=== PATIENT | female | born 1940 | race Caucasian/White ===

== ENCOUNTER 2017-03-29 19:55 | Inpatient (IN) | payer OTHER ==
[~2017-03-29] VITALS: Ht 165.1 cm; Wt 50.4 kg
[~2017-03-29 19:55] MED LIST: AEC81 PO; ALBU0.63 IH; ALBU6.7H IH; AMOX-429 PO; BUDE10.2 IH; DIGO125T87 PO; DILT180C3 PO; PRED20TA3 PO; TIOT18CA3 IH
[2017-03-29] MEDS ORDERED: SODIUM CHLORIDE 0.9% 1000ML 2,000 ML IV ONE (20:11)
[2017-03-29 20:51] LABS: BASOPHILS % (AUTO) 0.1 % (0.0-5.0); LYMPHOCYTES % (AUTO) 1.5 % (21.0-51.0); MEAN CORPUSCULAR HEMOGLOBIN 30.3 pg (27.0-33.0); MEAN CORPUSCULAR HGB CONC 33.3 g/dL (32.0-36.0); MEAN CORPUSCULAR VOLUME 91.2 fL (79-99); MONOCYTES % (AUTO) 6.6 % (3.0-13.0); NEUTROPHILS % (AUTO) 91.8 % (40.0-77.0); PLATELET COUNT (AUTO) 336 K/uL (130-400); RED BLOOD CELL COUNT(AUTO) 5.15 MIL/uL (4.00-5.50); RED CELL DISTRIBUTION WIDTH 13.3 % (11.0-15.5); WHITE BLOOD COUNT (AUTO) 17.2 K/uL (4.8-10.8)
[2017-03-29 21:03] LABS: CARBON DIOXIDE 27 mmol/L (21-32); CHLORIDE 94 mmol/L (101-111); CREATININE 0.6 mg/dL (0.5-1.5); GLOMERULAR FILTR. RATE CALC 102 mL/min (>60); GLUCOSE,RANDOM 91 mg/dL (70-105); POTASSIUM 3.2 mmol/L (3.5-5.1); SODIUM SERUM 132 mmol/L (136-145); UREA NITROGEN, BLOOD 8 mg/dL (7-18)
[2017-03-29 21:05] LABS: APPEARANCE,URINE Clear (CLEAR); BILIRUBIN,URINE Negative (NEGATIVE); COLOR,URINE Yellow (YELLOW); GLUCOSE, URINE (UA) Negative (NEGATIVE); KETONES,URINE >=80 mg/dL (NEGATIVE); LEUKOCYTE ESTERASE ,URINE Negative (NEGATIVE); NITRATE,URINE Negative (NEGATIVE); OCCULT BLOOD,URINE Trace (NEGATIVE); PROTEIN,URINE Negative (NEGATIVE); UROBILINOGEN,URINE 0.2 mg/dL (0.2-1.0)
[2017-03-29 21:15] LABS: BACTERIA,URINE Rare /HPF (None Seen); MUCUS,URINE Few LPF (None Seen); RBC,URINE None Seen /HPF (0-1); SQUAMOUS EPITHELIAL CELL,UR Few /LPF (0-2); WBC,URINE None Seen /HPF (0-1)
[2017-03-29] MEDS ORDERED: ACETAMINOPHEN EXTRA STRENGTH 500 MG TABLET ONE (21:15)
[2017-03-29] MEDS ORDERED: LEVOFLOXACIN 750 MG/D5W 150 ML 150 ML ONE (21:15)
[2017-03-29 21:18] LABS: ALANINE AMINOTRANSFERASE 20 U/L (12-78); ALBUMIN 3.3 g/dL (3.5-5.0); ASPARTATE AMINOTRANSFERASE 20 U/L (10-37); BILIRUBIN,TOTAL 0.5 mg/dL (0.2-1.0); CREATINE KINASE MB < 0.5 ng/mL (0.5-3.6); CREATINE KINASE, TOTAL 48 U/L (21-232); MYOGLOBIN 71 ng/mL (10-92); TOTAL PROTEIN, SERUM 6.6 g/dL (6.0-8.3); TROPONIN I < 0.04 ng/mL (0.00-0.06)
[2017-03-29 21:24] LABS: INR 1.05 (0.85-1.15); PARTIAL THROMBOPLASTIN TIME 28.1 SEC (26.3-35.5)
[2017-03-29 21:26] LABS: ABG BASE EXCESS -7.4 mmol/L (-2.0-3.0); ABG HCO3 21.2 mmol/L (21.0-28.0); ABG OXYGEN SATURATION 81.9 % (95.0-99.0); ABG PCO2 56 mmHg (32-45)
[2017-03-29] MEDS ORDERED: OSELTAMIVIR PHOSPHATE 75 MG CAP ONE (22:15)
[2017-03-29] MEDS ORDERED: SODIUM CHLORIDE 0.9% 1000ML 1,000 ML IV ONE (23:55)
[2017-03-30] VITALS (17 sets, daily range): BP systolic 99–155; BP diastolic 45–93
[2017-03-30] MEDS: SODIUM CHLORIDE 0.9% 1000ML 1,000 ML IV SCH ×2 (00:02→08:47)
[2017-03-30] MEDS ORDERED: POTASSIUM CHLORIDE 10% ELIXIR 20 MEQ/15 ML UDCUP PO PRN (00:15)
[2017-03-30] MEDS ORDERED: POTASSIUM CHLORIDE 20MEQ/100ML 100 ML IV PRN (00:15)
[2017-03-30] MEDS ORDERED: LIDOCAINE HCL-MPF 1% 2ML VIAL IVP PRN (00:15)
[2017-03-30] MEDS ORDERED: ONDANSETRON HCL 4 MG/2 ML VIAL IV PRN (00:15)
[2017-03-30] MEDS ORDERED: GUAIFENESIN-DM 200/20 MG 10 ML PO PRN (00:15)
[2017-03-30] MEDS ORDERED: POTASSIUM CHLORIDE 20 MEQ ERTAB PO PRN (00:15)
[2017-03-30] MEDS ORDERED: ACETAMINOPHEN 325 MG TAB PO PRN ×2 (00:15)
[2017-03-30] MEDS ORDERED: CEFTRIAXONE 1GM/D5W 50ML 50 ML IV SCH (00:30)
[2017-03-30] MEDS: AZITHROMYCIN 500MG+NS 250ML 250 ML IV SCH (01:00)
[2017-03-30] MEDS ORDERED: METHYLPREDNISOLONE SOD SUCC 125MG/2ML VIAL IVP SCH ×2 (01:00→09:00)
[2017-03-30] MEDS ORDERED: METHYLPREDNISOLONE SOD SUCC 125MG/2ML VIAL ONE (01:48)
[2017-03-30] MEDS ORDERED: CEFTRIAXONE SODIUM 1 GM ONE (01:48)
[2017-03-30] MEDS ORDERED: AZITHROMYCIN 500MG+NS 250ML 250 ML IV ONE (01:48)
[2017-03-30 06:20] LABS: HEMATOCRIT 47.9 % (36-48); MEAN CORPUSCULAR HEMOGLOBIN 30.1 pg (27.0-33.0); MEAN CORPUSCULAR HGB CONC 32.8 g/dL (32.0-36.0); MEAN CORPUSCULAR VOLUME 91.8 fL (79-99); PLATELET COUNT (AUTO) 268 K/uL (130-400); RED BLOOD CELL COUNT(AUTO) 5.22 MIL/uL (4.00-5.50); RED CELL DISTRIBUTION WIDTH 13.7 % (11.0-15.5)
[2017-03-30 06:33] LABS: CREATININE 0.8 mg/dL (0.5-1.5); POTASSIUM 3.5 mmol/L (3.5-5.1)
[2017-03-30] MEDS: FAMOTIDINE 20MG TAB 20 MG TAB PO SCH ×2 (08:25→21:22)
[2017-03-30] MEDS: OSELTAMIVIR PHOSPHATE 75 MG CAP PO SCH ×2 (08:25→21:22)
[2017-03-30] MEDS: ENOXAPARIN SODIUM 40 MG/0.4 ML SYRINGE SQ SCH (08:25)
[2017-03-30] MEDS: METHYLPREDNISOLONE SOD SUCC 125MG/2ML VIAL IV SCH ×3 (08:25→16:16)
[2017-03-30] MEDS: IPRATROPIUM/ALBUTEROL SULFATE 3 ML SOLUTION IH SCH ×4 (08:43→23:34)
[2017-03-30] MEDS ORDERED: ENOXAPARIN SODIUM 40 MG/0.4 ML SYRINGE SQ SCH (09:00)
[2017-03-30 09:11] LABS: ABG BASE EXCESS -7.7 mmol/L (-2.0-3.0); ABG HCO3 20.4 mmol/L (21.0-28.0); ABG OXYGEN SATURATION 98.7 % (95.0-99.0); ABG PCO2 52 mmHg (32-45)
[2017-03-30] MEDS: DILTIAZEM HCL 60 MG TABLET PO SCH ×2 (12:11→18:00)
[2017-03-30] MEDS ORDERED: TERB250T51 PO (17:28)
[2017-03-30] MEDS ORDERED: HYDR25TA PO (17:28)
[2017-03-30] MEDS: CEFTRIAXONE SODIUM 1 GM IVP SCH (21:23)
[2017-03-31] VITALS (17 sets, daily range): BP systolic 92–128; BP diastolic 46–80
[2017-03-31] MEDS: METHYLPREDNISOLONE SOD SUCC 125MG/2ML VIAL IV SCH ×4 (00:21→23:23)
[2017-03-31] MEDS: AZITHROMYCIN 500MG+NS 250ML 250 ML IV SCH ×2 (00:21→23:44)
[2017-03-31 04:00] LABS: HEMATOCRIT 42.5 % (36-48); MEAN CORPUSCULAR HEMOGLOBIN 30.6 pg (27.0-33.0); MEAN CORPUSCULAR HGB CONC 33.3 g/dL (32.0-36.0); MEAN CORPUSCULAR VOLUME 92.1 fL (79-99); PLATELET COUNT (AUTO) 308 K/uL (130-400); RED BLOOD CELL COUNT(AUTO) 4.62 MIL/uL (4.00-5.50); RED CELL DISTRIBUTION WIDTH 13.8 % (11.0-15.5); WHITE BLOOD COUNT (AUTO) 19.4 K/uL (4.8-10.8)
[2017-03-31 04:16] LABS: CREATININE 1.5 mg/dL (0.5-1.5); POTASSIUM 3.5 mmol/L (3.5-5.1)
[2017-03-31] MEDS: DILTIAZEM HCL 60 MG TABLET PO SCH ×5 (06:17→23:23)
[2017-03-31] MEDS: IPRATROPIUM/ALBUTEROL SULFATE 3 ML SOLUTION IH SCH ×4 (06:39→23:39)
[2017-03-31] MEDS ORDERED: SODIUM CHLORIDE 0.9% 1000ML 1,000 ML IV SCH (07:06)
[2017-03-31 07:51] LABS: ABG BASE EXCESS -5.3 mmol/L (-2.0-3.0); ABG HCO3 21.8 mmol/L (21.0-28.0); ABG PCO2 48 mmHg (32-45)
[2017-03-31] MEDS: ASPIRIN 81 MG EC TAB PO SCH (08:36)
[2017-03-31] MEDS: OSELTAMIVIR PHOSPHATE 75 MG CAP PO SCH ×2 (08:36→20:24)
[2017-03-31] MEDS: FAMOTIDINE 20MG TAB 20 MG TAB PO SCH ×2 (08:37→20:24)
[2017-03-31] MEDS: DIGOXIN 125 MCG TABLET PO SCH (08:37)
[2017-03-31] MEDS: ENOXAPARIN SODIUM 40 MG/0.4 ML SYRINGE SQ SCH (08:39)
[2017-03-31] MEDS: **HM** TERBINAFINE 250MG PO SCH (08:39)
[2017-03-31] MEDS: ALBUTEROL SULFATE 0.083% 2.5 MG/3 ML INH IH SCH (18:00)
[2017-03-31] MEDS: IPRATROPIUM 0.5 MG/2.5 ML INH IH SCH (18:00)
[2017-03-31] MEDS: BUDESONIDE 0.5 MG/2 ML INH IH SCH (19:40)
[2017-03-31] MEDS ORDERED: WATER FOR INJECTION,STERILE 20 ML VIAL ONE (19:59)
[2017-03-31] MEDS: CEFTRIAXONE SODIUM 1 GM IVP SCH (20:23)
[2017-04-01 04:29] VITALS: BP 121/56
[2017-04-01] MEDS: DILTIAZEM HCL 60 MG TABLET PO SCH ×3 (05:04→16:32)
[2017-04-01] MEDS: IPRATROPIUM/ALBUTEROL SULFATE 3 ML SOLUTION IH SCH ×4 (06:00→23:55)
[2017-04-01] MEDS: IPRATROPIUM 0.5 MG/2.5 ML INH IH SCH ×3 (06:43→18:00)
[2017-04-01] MEDS: ALBUTEROL SULFATE 0.083% 2.5 MG/3 ML INH IH SCH ×3 (06:43→18:00)
[2017-04-01] MEDS: BUDESONIDE 0.5 MG/2 ML INH IH SCH ×2 (06:58→19:29)
[2017-04-01 07:40] VITALS: BP 128/69
[2017-04-01 07:40] LABS: CREATININE 1.1 mg/dL (0.5-1.5); POTASSIUM 4.1 mmol/L (3.5-5.1)
[2017-04-01] MEDS: FAMOTIDINE 20MG TAB 20 MG TAB PO SCH ×2 (07:44→21:43)
[2017-04-01] MEDS: OSELTAMIVIR PHOSPHATE 75 MG CAP PO SCH ×2 (07:44→21:43)
[2017-04-01] MEDS: ASPIRIN 81 MG EC TAB PO SCH (07:44)
[2017-04-01] MEDS: METHYLPREDNISOLONE SOD SUCC 125MG/2ML VIAL IV SCH (07:45)
[2017-04-01] MEDS: DIGOXIN 125 MCG TABLET PO SCH (07:45)
[2017-04-01] MEDS: ENOXAPARIN SODIUM 40 MG/0.4 ML SYRINGE SQ SCH (07:45)
[2017-04-01] MEDS: **HM** TERBINAFINE 250MG PO SCH (07:45)
[2017-04-01] MEDS ORDERED: ACETYLCYSTEINE 20% 200MG/ML 4ML VIAL ONE (10:59)
[2017-04-01 11:10] VITALS: BP 121/62
[2017-04-01] MEDS: ACETYLCYSTEINE 20% 200MG/ML 4ML VIAL IH SCH ×2 (11:24→19:02)
[2017-04-01 16:15] VITALS: BP 132/60
[2017-04-01] MEDS: METHYLPREDNISOLONE SOD SUCC 40MG/ML 1ML IVP SCH (16:32)
[2017-04-01 19:45] VITALS: BP 129/44
[2017-04-01] MEDS: CEFTRIAXONE SODIUM 1 GM IVP SCH (21:43)
[2017-04-01 23:47] VITALS: BP 118/52
[2017-04-02] MEDS: AZITHROMYCIN 500MG+NS 250ML 250 ML IV SCH (00:33)
[2017-04-02] MEDS: METHYLPREDNISOLONE SOD SUCC 40MG/ML 1ML IVP SCH ×3 (00:36→20:23)
[2017-04-02] MEDS: DILTIAZEM HCL 60 MG TABLET PO SCH ×3 (00:36→11:55)
[2017-04-02 03:55] VITALS: BP 132/68
[2017-04-02 04:43] LABS: HEMATOCRIT 39.2 % (36-48); MEAN CORPUSCULAR HEMOGLOBIN 30.5 pg (27.0-33.0); MEAN CORPUSCULAR HGB CONC 33.5 g/dL (32.0-36.0); PLATELET COUNT (AUTO) 271 K/uL (130-400); RED CELL DISTRIBUTION WIDTH 14.1 % (11.0-15.5); WHITE BLOOD COUNT (AUTO) 9.3 K/uL (4.8-10.8)
[2017-04-02 05:00] LABS: CREATININE 0.9 mg/dL (0.5-1.5); POTASSIUM 4.3 mmol/L (3.5-5.1)
[2017-04-02] MEDS: IPRATROPIUM/ALBUTEROL SULFATE 3 ML SOLUTION IH SCH ×2 (06:36→11:43)
[2017-04-02] MEDS: ACETYLCYSTEINE 20% 200MG/ML 4ML VIAL IH SCH (06:37)
[2017-04-02] MEDS: BUDESONIDE 0.5 MG/2 ML INH IH SCH ×2 (07:16→19:05)
[2017-04-02 07:38] VITALS: BP 136/65
[2017-04-02] MEDS: FAMOTIDINE 20MG TAB 20 MG TAB PO SCH ×2 (09:00→20:24)
[2017-04-02] MEDS: ASPIRIN 81 MG EC TAB PO SCH (09:00)
[2017-04-02] MEDS: ENOXAPARIN SODIUM 40 MG/0.4 ML SYRINGE SQ SCH (09:00)
[2017-04-02] MEDS: DIGOXIN 125 MCG TABLET PO SCH (09:00)
[2017-04-02] MEDS: **HM** TERBINAFINE 250MG PO SCH (09:00)
[2017-04-02 11:13] VITALS: BP 136/64
[2017-04-02] MEDS: OSELTAMIVIR PHOSPHATE 75 MG CAP PO SCH ×2 (12:01→20:24)
[2017-04-02 16:15] VITALS: BP 121/72
[2017-04-02] MEDS: DILTIAZEM HCL 180 MG CAP.SR.24H PO SCH (18:21)
[2017-04-02] MEDS: IPRATROPIUM 0.5 MG/2.5 ML INH IH SCH ×2 (18:27)
[2017-04-02 19:51] VITALS: BP 130/69
[2017-04-02] MEDS ORDERED: WATER FOR INJECTION,STERILE 5 ML VIAL ONE (20:19)
[2017-04-02] MEDS: CEFTRIAXONE SODIUM 1 GM IVP SCH (20:22)
[2017-04-02 23:35] VITALS: BP 140/73
[2017-04-03] MEDS: AZITHROMYCIN 500MG+NS 250ML 250 ML IV SCH (00:17)
[2017-04-03] MEDS: IPRATROPIUM 0.5 MG/2.5 ML INH IH SCH ×5 (01:27→23:58)
[2017-04-03 04:09] VITALS: BP 132/68
[2017-04-03] MEDS: BUDESONIDE 0.5 MG/2 ML INH IH SCH ×2 (06:45→19:35)
[2017-04-03 07:28] VITALS: BP 141/72
[2017-04-03] MEDS: FAMOTIDINE 20MG TAB 20 MG TAB PO SCH ×2 (09:00→21:41)
[2017-04-03] MEDS ORDERED: DILTIAZEM HCL 180 MG CAP.SR.24H PO SCH (09:00)
[2017-04-03] MEDS: ASPIRIN 81 MG EC TAB PO SCH (09:00)
[2017-04-03] MEDS: **HM** TERBINAFINE 250MG PO SCH (09:00)
[2017-04-03] MEDS: OSELTAMIVIR PHOSPHATE 75 MG CAP PO SCH (09:01)
[2017-04-03] MEDS: DILTIAZEM HCL 180 MG CAP.SR.24H PO SCH (09:01)
[2017-04-03] MEDS: DIGOXIN 125 MCG TABLET PO SCH (09:01)
[2017-04-03] MEDS: METHYLPREDNISOLONE SOD SUCC 40MG/ML 1ML IVP SCH ×2 (09:02→21:39)
[2017-04-03] MEDS: ENOXAPARIN SODIUM 40 MG/0.4 ML SYRINGE SQ SCH (09:03)
[2017-04-03 11:24] VITALS: BP 151/74
[2017-04-03 16:14] VITALS: BP 152/72
[2017-04-03 19:39] VITALS: BP 147/90
[2017-04-03] MEDS ORDERED: WATER FOR INJECTION,STERILE 20 ML VIAL ONE (21:28)
[2017-04-03] MEDS: CEFTRIAXONE SODIUM 1 GM IVP SCH (21:40)
[2017-04-03 23:17] VITALS: BP 155/76
[2017-04-04] MEDS: AZITHROMYCIN 500MG+NS 250ML 250 ML IV SCH (00:09)
[2017-04-04 03:18] LABS: CREATININE 0.7 mg/dL (0.5-1.5); POTASSIUM 4.6 mmol/L (3.5-5.1)
[2017-04-04 03:19] LABS: HEMATOCRIT 40.3 % (36-48); MEAN CORPUSCULAR HEMOGLOBIN 31.1 pg (27.0-33.0); MEAN CORPUSCULAR VOLUME 91.4 fL (79-99); PLATELET COUNT (AUTO) 249 K/uL (130-400); RED BLOOD CELL COUNT(AUTO) 4.41 MIL/uL (4.00-5.50); RED CELL DISTRIBUTION WIDTH 13.8 % (11.0-15.5); WHITE BLOOD COUNT (AUTO) 8.8 K/uL (4.8-10.8)
[2017-04-04 03:48] VITALS: BP 153/76
[2017-04-04] MEDS: IPRATROPIUM 0.5 MG/2.5 ML INH IH SCH ×5 (06:00→12:00)
[2017-04-04] MEDS: BUDESONIDE 0.5 MG/2 ML INH IH SCH (06:08)
[2017-04-04 07:31] VITALS: BP 148/76
[2017-04-04] MEDS: FAMOTIDINE 20MG TAB 20 MG TAB PO SCH (08:19)
[2017-04-04] MEDS: METHYLPREDNISOLONE SOD SUCC 40MG/ML 1ML IVP SCH (08:19)
[2017-04-04] MEDS: DIGOXIN 125 MCG TABLET PO SCH (08:20)
[2017-04-04] MEDS: ASPIRIN 81 MG EC TAB PO SCH (08:20)
[2017-04-04] MEDS: DILTIAZEM HCL 180 MG CAP.SR.24H PO SCH (08:20)
[2017-04-04] MEDS: ENOXAPARIN SODIUM 40 MG/0.4 ML SYRINGE SQ SCH (08:21)
[2017-04-04] MEDS: **HM** TERBINAFINE 250MG PO SCH (08:26)
[2017-04-04 11:39] VITALS: BP 145/65
[2017-04-04 16:17] VITALS: BP 169/92
== END 2017-04-04 18:00 | DRG 871 ==
LOC: EDH 19:55 → EDHIP 21:35 → 2BH 03-30 05:20 → 2CH 03-30 22:34 → 2DH 03-31 15:32
PROVIDERS: ADMIT Internal Medicine; ATTEND Internal Medicine
PROC: 5A09357 Assistance with Respiratory Ventilation, Less than 24 Consecutive Hours, Continuous Positive Airway Pressure (ICD-10-PCS; principal; 2017-03-30)
PROC: 5A09357 Assistance with Respiratory Ventilation, Less than 24 Consecutive Hours, Continuous Positive Airway Pressure (ICD-10-PCS; 2017-03-31)
PROC: 5A09357 Assistance with Respiratory Ventilation, Less than 24 Consecutive Hours, Continuous Positive Airway Pressure (ICD-10-PCS; 2017-04-02)
DX: A41.9 Sepsis, unspecified organism (principal); J96.21 Acute and chronic respiratory failure with hypoxia; I48.0 Paroxysmal atrial fibrillation; J10.00 Influenza due to other identified influenza virus with unspecified type of pneumonia; I48.2 Chronic atrial fibrillation; Z99.81 Dependence on supplemental oxygen; J96.22 Acute and chronic respiratory failure with hypercapnia; J44.0 Chronic obstructive pulmonary disease with (acute) lower respiratory infection; J44.1 Chronic obstructive pulmonary disease with (acute) exacerbation; J10.1 Influenza due to other identified influenza virus with other respiratory manifestations; I10 Essential (primary) hypertension; Z87.891 Personal history of nicotine dependence; Z88.5 Allergy status to narcotic agent
CPT/HCPCS: 36415; 36600; 71010; 71045; 80048; 80053; 80162; 81001; 82550; 82553; 82803; 83605; 83874; 83880; 84484; 85025; 85027; 85610; 85730; 87040; 87088; 87804; 93005; 94640; 94660; 94664; 99291; A4218; J0456; J0696; J1650; J1956; J2920; J2930; J7030; J7608

== ENCOUNTER → 2017-05-06 | Outpatient (CLI) | payer OTHER ==
[~2017-05-06] MED LIST changes: -ALBU0.63 IH; -AMOX-429 PO; +HYDR25TA PO; -PRED20TA3 PO; +TERB250T51 PO
== END | disposition home or self-care (01) ==
LOC: SHCH 13:51
PROVIDERS: ATTEND Internal Medicine Cardiovascular Disease
DX: I51.7 Cardiomegaly (principal); J44.9 Chronic obstructive pulmonary disease, unspecified
CPT/HCPCS: 93306

== ENCOUNTER 2019-02-07 15:35 | Observation (INO) | payer OTHER ==
[~2019-02-07] VITALS: Ht 170.2 cm; Wt 44.0 kg
[~2019-02-07 15:35] MED LIST changes: -ALBU6.7H IH; +ALBU6.7H9 IH; -DILT180C3 PO; +DILT180C89 PO
[2019-02-07] MEDS ORDERED: IPRATROPIUM/ALBUTEROL SULFATE 3 ML SOLUTION IH ONE (15:54)
[2019-02-07] MEDS ORDERED: METHYLPREDNISOLONE SOD SUCC 40MG/ML 1ML ONE (16:12)
[2019-02-07 16:22] LABS: BASOPHILS % (AUTO) 0.6 % (0.0-5.0); HEMATOCRIT 41.7 % (36-48); LYMPHOCYTES % (AUTO) 13.8 % (21.0-51.0); MEAN CORPUSCULAR HEMOGLOBIN 30.1 pg (27.0-33.0); MEAN CORPUSCULAR HGB CONC 32.6 g/dL (32.0-36.0); MEAN CORPUSCULAR VOLUME 92.1 fL (79-99); MONOCYTES % (AUTO) 9.1 % (3.0-13.0); NEUTROPHILS % (AUTO) 70.5 % (40.0-77.0); PLATELET COUNT (AUTO) 279 K/uL (130-400); RED BLOOD CELL COUNT(AUTO) 4.53 MIL/uL (4.00-5.50); RED CELL DISTRIBUTION WIDTH 13.8 % (11.0-15.5); WHITE BLOOD COUNT (AUTO) 15.4 K/uL (4.8-10.8)
[2019-02-07 16:53] LABS: CREATININE 0.9 mg/dL (0.5-1.5); POTASSIUM 4.4 mmol/L (3.5-5.1)
[2019-02-07 16:58] LABS: ALBUMIN 3.1 g/dL (3.5-5.0); BILIRUBIN,TOTAL 0.4 mg/dL (0.2-1.0); TOTAL PROTEIN, SERUM 6.1 g/dL (6.0-8.3)
[2019-02-07 17:28] LABS: B-TYPE NATRIURETIC PEPTIDE 87 pg/mL (0-100)
[2019-02-07] MEDS ORDERED: CEFTRIAXONE SODIUM 1 GM ONE (19:26)
[2019-02-07] MEDS ORDERED: AZITHROMYCIN 500MG+NS 250ML 250 ML IV ONE (20:38)
[2019-02-07] MEDS ORDERED: LACTULOSE 20 GM/30 ML UDCUP PO PRN (21:00)
[2019-02-07] MEDS ORDERED: MORPHINE SULFATE 2 MG/ML 1ML SYG IV PRN (21:00)
[2019-02-07] MEDS ORDERED: ONDANSETRON HCL 4 MG/2 ML VIAL IV PRN (21:00)
[2019-02-07] MEDS ORDERED: MAGNESIUM 2GM PREMIX 50ML 50 ML IV PRN (21:00)
[2019-02-07] MEDS ORDERED: DIPHENHYDRAMINE HCL 25 MG CAPSULE PO PRN (21:00)
[2019-02-07] MEDS ORDERED: HYDRALAZINE HCL 20 MG/ML VIAL IV PRN (21:00)
[2019-02-07] MEDS ORDERED: GUAIFENESIN-DM 200/20 MG 10 ML PO PRN (21:00)
[2019-02-07] MEDS: INSULIN HUMULIN R 100 UNIT/ML 3ML SQ SCH (21:00)
[2019-02-07] MEDS: AZITHROMYCIN 500MG+NS 250ML 250 ML IV SCH (21:00)
[2019-02-07] MEDS ORDERED: NITROGLYCERIN 0.4 MG SL TAB SL PRN (21:00)
[2019-02-07] MEDS ORDERED: CEFTRIAXONE SODIUM 1 GM IV SCH (21:00)
[2019-02-07] MEDS ORDERED: MAG HYDROX/AL HYDROX/SIMETH ES 30 ML SUSP UDCUP PO PRN (21:00)
[2019-02-07] MEDS ORDERED: ACETAMINOPHEN 325 MG TAB PO PRN ×2 (21:00)
[2019-02-07] MEDS ORDERED: POTASSIUM CHLORIDE 20 MEQ ERTAB PO PRN (21:00)
[2019-02-07] MEDS ORDERED: POTASSIUM CHLORIDE 10% ELIXIR 20 MEQ/15 ML UDCUP PO PRN (21:00)
[2019-02-07] MEDS ORDERED: POTASSIUM CHLORIDE 20MEQ/100ML 100 ML IV PRN (21:00)
[2019-02-07] MEDS ORDERED: ZOLPIDEM TARTRATE 5 MG TAB PO PRN (21:00)
[2019-02-07] MEDS: IPRATROPIUM/ALBUTEROL SULFATE 3 ML SOLUTION IH SCH (23:03)
[2019-02-08] MEDS ORDERED: METHYLPREDNISOLONE SOD SUCC 40MG/ML 1ML ONE ×2 (00:37→16:38)
[2019-02-08] MEDS ORDERED: SODIUM CHLORIDE 3% FOR INHALATION 4 ML/AMP VIAL.NEB IH ONE ×2 (01:30→05:15)
[2019-02-08] MEDS: IPRATROPIUM/ALBUTEROL SULFATE 3 ML SOLUTION IH SCH ×4 (05:15→23:48)
[2019-02-08 05:17] LABS: BASOPHILS % (AUTO) 0.4 % (0.0-5.0); EOSINOPHILS % (AUTO) 0.1 % (0.0-8.0); HEMATOCRIT 42.2 % (36-48); LYMPHOCYTES % (AUTO) 6.2 % (21.0-51.0); MEAN CORPUSCULAR HEMOGLOBIN 30.2 pg (27.0-33.0); MEAN CORPUSCULAR HGB CONC 32.7 g/dL (32.0-36.0); MEAN CORPUSCULAR VOLUME 92.2 fL (79-99); MONOCYTES % (AUTO) 1.7 % (3.0-13.0); NEUTROPHILS % (AUTO) 91.6 % (40.0-77.0); PLATELET COUNT (AUTO) 279 K/uL (130-400); RED BLOOD CELL COUNT(AUTO) 4.57 MIL/uL (4.00-5.50); WHITE BLOOD COUNT (AUTO) 9.2 K/uL (4.8-10.8)
[2019-02-08 05:20] LABS: CARBON DIOXIDE 31 mmol/L (21-32); CHLORIDE 102 mmol/L (101-111); CREATININE 0.7 mg/dL (0.5-1.5); GLOMERULAR FILTR. RATE CALC 86 mL/min (>60); GLUCOSE,RANDOM 169 mg/dL (70-105); POTASSIUM 5.3 mmol/L (3.5-5.1); SODIUM SERUM 138 mmol/L (136-145); UREA NITROGEN, BLOOD 13 mg/dL (7-18)
[2019-02-08 05:31] LABS: B-TYPE NATRIURETIC PEPTIDE 115 pg/mL (0-100)
[2019-02-08] MEDS: INSULIN HUMULIN R 100 UNIT/ML 3ML SQ SCH ×4 (07:30→21:00)
[2019-02-08] MEDS ORDERED: IPRATROPIUM/ALBUTEROL SULFATE 3 ML SOLUTION IH ONE (10:58)
--- NOTE | 2019-02-08 11:17 | NUR ---
DCP: HOME SW met aide pt who states her son Marcus Rodriguez [phone] lives with her. Pt states she is very active and independent, drives, ambulates on her own, has )2 and nebulizer at home thru [facility]. PCP is Dr Hoover and uses [facility]. Pt denies dc needs and plan is home at dc Addendum: 02/08/19 at 1119 by EKTA MINOR SS Amended: Links added.
[2019-02-08] MEDS: LEVOFLOXACIN 500 MG/D5W 100 ML 100 ML IV SCH (13:00)
[2019-02-08] MEDS ORDERED: LEVOFLOXACIN 500 MG/D5W 100 ML 100 ML ONE (14:57)
[2019-02-08 17:30] VITALS: BP 144/66
--- NOTE | 2019-02-08 17:45 | NUR ---
Pt admitted to room 321, observed large bruised with some swelling area to left calf area for which an ultrasound was done but is negative for DVT.
[2019-02-08 20:28] VITALS: BP 151/63
--- NOTE | 2019-02-08 21:45 | NUR ---
PT EXPLAINED THAT SEE WAS TO BE NPO AND THE DR HAD NOT STARTED HOME MEDS. PT TOOK OWN HOME MEDS. INSTRUCTED TO DAUGHTER TO TAKE MEDICATION HOME.
[2019-02-08] MEDS: AZITHROMYCIN 500MG+NS 250ML 250 ML IV SCH (21:48)
[2019-02-08] MEDS: METHYLPREDNISOLONE SOD SUCC 40MG/ML 1ML IVP SCH (21:48)
[2019-02-08 23:36] VITALS: BP 141/73
[2019-02-09] MEDS ORDERED: SODIUM CHLORIDE 3% FOR INHALATION 4 ML/AMP VIAL.NEB IH ONE (01:47)
[2019-02-09 03:44] VITALS: BP 144/77
[2019-02-09] MEDS: IPRATROPIUM/ALBUTEROL SULFATE 3 ML SOLUTION IH SCH ×4 (05:26→23:12)
[2019-02-09] MEDS: INSULIN HUMULIN R 100 UNIT/ML 3ML SQ SCH ×4 (06:46→21:00)
[2019-02-09 08:05] VITALS: BP 141/74
[2019-02-09] MEDS: METHYLPREDNISOLONE SOD SUCC 40MG/ML 1ML IVP SCH ×2 (10:37→20:41)
[2019-02-09] MEDS ORDERED: ALBU90AE2 IH (10:43)
[2019-02-09 11:00] VITALS: BP 136/78
[2019-02-09] MEDS: LEVOFLOXACIN 500 MG/D5W 100 ML 100 ML IV SCH (14:36)
[2019-02-09 16:00] VITALS: BP 139/84
[2019-02-09] MEDS ORDERED: LEVO500T2 PO (16:19)
[2019-02-09] MEDS ORDERED: IPRA3AMP24 IH (16:19)
[2019-02-09] MEDS ORDERED: PRED20TA3 PO (16:19)
[2019-02-09] MEDS ORDERED: ALBU6.7H9 IH (16:19)
--- NOTE | 2019-02-09 16:30 | NUR ---
ELISA Pt admitted for COPD Exacerbation, Pulmonary fibrosis, Brochiectasis, Cachexia. Pt Low BMI (15.2);Pt reports no recent wt loss, 97-98# is UBW. Pt agrees to Ensure shake QD. Pt with good appetite as per Pt (100%). LBM 02/08. Pt monitored labs: K 53, Glu 160, BMP 115, Alb 3.1. RD to continue to monitor. Please notify RD as additional nutrition concerns arise. Thank you. Addendum: 02/09/19 at [address] Amended: Links added.
--- NOTE | 2019-02-09 18:55 | NUR ---
PATIENT DISCHARGED , INFORMED PATIENT ON DISCHARGE AND PRESCRIPITON CALLED IN ,PER PATIENT IS NOT GOING HOME TONIGHT AND WILL LEAVE TOMORROW MORNING DUE TO NO HEATER AT HER HOUSE . INFORMED Rico LORENZO ON ISSUE OF PAITENT NOT WANTING TO LEAVE , PER CHARLEY ALREADY DISCHARGED AND FOR SHUTTLE SPOTTER TO FOLLOW ON ISSUE . INFORMED CHARGE NURSE JEFE PER JEFE CALLED TO CASE MANAGEMENT AND STATED PATIENT IS DISCHARGED . JEFE SPOKE WITH PATIENT ,PATIENT UPSET AND STATED WILL NOT LEAVE THE HOSPITAL TONIGHT . DISCHARGE PAPERS READY FOR PT
--- NOTE | 2019-02-09 19:00 | NUR ---
DISCHARGE PAPERS READY PATIENT REFUSED TO SIGN AT THIS TIME ,STATED WILL GO HOME TOMORROW
--- NOTE | 2019-02-09 19:45 | NUR ---
CALL BACK FROM Rico MONIQUE REGARDING PENDING SCRIPT MEDICATIONS ON SYSTEM . PER ANIMAL RIDES MANAGER TRIED AGAIN WHEN REVIEWING LIST ,PENDING MEDS DID GO THROUGH AFTER ATTEMPT. SCRIPTS WERE CALLED IN TO PHARMACY WELL .
[2019-02-09 20:18] VITALS: BP 148/72
[2019-02-09] MEDS: AZITHROMYCIN 500MG+NS 250ML 250 ML IV SCH (20:41)
[2019-02-10 00:04] VITALS: BP 146/86
[2019-02-10 03:35] VITALS: BP 146/73
[2019-02-10] MEDS: IPRATROPIUM/ALBUTEROL SULFATE 3 ML SOLUTION IH SCH (05:14)
[2019-02-10] MEDS: INSULIN HUMULIN R 100 UNIT/ML 3ML SQ SCH (06:46)
[2019-02-10 07:30] VITALS: BP 148/75
== END 2019-02-10 09:40 | disposition home or self-care (01) ==
LOC: EDH 15:35 → OBSVTOIN 20:05 → INTOOBSV 20:05 → EDHIP 20:05 → 4DH 02-08 16:31
PROVIDERS: ADMIT Internal Medicine; ATTEND Internal Medicine
DX: J44.1 Chronic obstructive pulmonary disease with (acute) exacerbation (principal); J84.10 Pulmonary fibrosis, unspecified; J96.10 Chronic respiratory failure, unspecified whether with hypoxia or hypercapnia; I10 Essential (primary) hypertension; R64 Cachexia; I48.91 Unspecified atrial fibrillation; E78.5 Hyperlipidemia, unspecified; Z87.891 Personal history of nicotine dependence; Z99.81 Dependence on supplemental oxygen; Z79.4 Long term (current) use of insulin; Z79.82 Long term (current) use of aspirin; Z79.51 Long term (current) use of inhaled steroids; Z79.899 Other long term (current) drug therapy; Z88.5 Allergy status to narcotic agent
CPT/HCPCS: 36415 ×2; 71045 ×2; 80048; 80053; 82948 ×7; 83605; 83735; 83880 ×2; 84145; 85025 ×2; 87040 ×2; 87071; 87077; 87186; 87205; 93005; 93971; 94640 ×13; 94664; 96365; 96366; 96367; 96375; 96376; 99284; G0378 ×16; J0456 ×3; J0696; J1956 ×2; J2920 ×6

== ENCOUNTER 2020-09-22 23:38 | Observation (INO) | payer OTHER ==
[~2020-09-22] VITALS: Ht 157.5 cm; Wt 47.2 kg
[~2020-09-22 23:38] MED LIST changes: +ALBU90AE2 IH; -BUDE10.2 IH; +DIGO125T71 PO; -DIGO125T87 PO; +IPRA3AMP24 IH; +LEVO500T2 PO; +PRED20TA3 PO; -TERB250T51 PO; -TIOT18CA3 IH
[2020-09-23] VITALS (10 sets, daily range): BP systolic 106–163; BP diastolic 54–65
[2020-09-23 00:16] LABS: HEMATOCRIT 40.7 % (36-48); MEAN CORPUSCULAR VOLUME 96.9 fL (79-99); PLATELET COUNT (AUTO) 303 K/uL (130-400); RED CELL DISTRIBUTION WIDTH 13.9 % (11.0-15.5); WHITE BLOOD COUNT (AUTO) 10.5 K/uL (4.8-10.8)
[2020-09-23 00:32] LABS: CREATININE 0.7 mg/dL (0.5-1.5); POTASSIUM 4.1 mmol/L (3.5-5.1)
[2020-09-23 00:41] LABS: ALBUMIN 3.3 g/dL (3.5-5.0); BILIRUBIN,TOTAL 0.3 mg/dL (0.2-1.0); TOTAL PROTEIN, SERUM 6.3 g/dL (6.0-8.3)
[2020-09-23 00:47] LABS: APPEARANCE,URINE Clear (CLEAR); BILIRUBIN,URINE Negative (NEGATIVE); COLOR,URINE Yellow (YELLOW); GLUCOSE, URINE (UA) Negative (NEGATIVE); KETONES,URINE Negative (NEGATIVE); LEUKOCYTE ESTERASE ,URINE Trace (NEGATIVE); NITRATE,URINE Negative (NEGATIVE); OCCULT BLOOD,URINE Negative (NEGATIVE); PH,URINE 6.5 (5.0-8.0); PROTEIN,URINE POS 1+ mg/dL (NEGATIVE)
[2020-09-23 00:50] LABS: B-TYPE NATRIURETIC PEPTIDE 98 pg/mL (0-100)
[2020-09-23 01:08] LABS: RBC,URINE 0-1 /HPF (0-1); WBC,URINE 0-1 /HPF (0-1)
[2020-09-23 01:09] LABS: BACTERIA,URINE None Seen /HPF (None Seen); MUCUS,URINE Rare LPF (None Seen); SQUAMOUS EPITHELIAL CELL,UR Rare /HPF (0-2)
[2020-09-23] MEDS ORDERED: SOLU-MEDROL 125MG VIAL IVP ONE (01:15)
[2020-09-23] MEDS ORDERED: LEVOFLOXACIN 500 MG/D5W 100 ML 100 ML IV ONE (01:15)
[2020-09-23] MEDS ORDERED: DOXYCYCLINE 100MG+NS 250ML 250 ML IV SCH (11:15)
[2020-09-23] MEDS ORDERED: ACETAMINOPHEN 325 MG TAB PO PRN (11:15)
[2020-09-23] MEDS ORDERED: ONDANSETRON 4MG INJ IV PRN (11:15)
[2020-09-23] MEDS ORDERED: HYDRALAZINE 20MG/ML VIAL IV PRN (11:15)
[2020-09-23] MEDS ORDERED: ENOXAPARIN SODIUM 40 MG/0.4 ML SYRINGE SQ ONE (12:30)
[2020-09-23] MEDS ORDERED: LEVOFLOXACIN 500 MG/D5W 100 ML 100 ML IV SCH (12:30)
[2020-09-23] MEDS ORDERED: 0.9% NACL 50ML 50 ML IV ONE (12:42)
[2020-09-23] MEDS: CEFTRIAXONE 2GM VIAL IVP SCH (12:55)
[2020-09-23] MEDS: FUROSEMIDE 20MG VIAL IV SCH ×2 (12:55→18:45)
[2020-09-23] MEDS: PANTOPRAZOLE 40 MG/VIAL IVP SCH ×2 (12:55→17:51)
[2020-09-23] MEDS: SOLU-MEDROL 125MG VIAL IV SCH ×3 (12:55→21:26)
[2020-09-23] MEDS: IPRATROPIUM/ALBUTEROL SULFATE 3 ML SOLUTION IH SCH ×3 (14:01→22:47)
[2020-09-23] MEDS: INSULIN HUMULIN R 100 UNIT/ML 3ML SQ SCH ×2 (16:30→21:00)
[2020-09-23] MEDS: BENZONATATE 100 MG CAPSULE PO SCH ×2 (18:48→21:23)
[2020-09-23] MEDS ORDERED: FAMOTIDINE 20MG TAB PO SCH (21:00)
[2020-09-24] MEDS: IPRATROPIUM/ALBUTEROL SULFATE 3 ML SOLUTION IH SCH ×6 (02:10→22:25)
[2020-09-24 04:00] VITALS: BP 120/53
[2020-09-24] MEDS ORDERED: BENZOCAINE/MENTH/CETYLPYRD CL 1 EACH LOZENGE MM ONE (04:11)
[2020-09-24] MEDS: SOLU-MEDROL 125MG VIAL IV SCH (04:24)
[2020-09-24] MEDS: FUROSEMIDE 20MG VIAL IV SCH ×3 (04:25→21:26)
[2020-09-24 04:52] LABS: EOSINOPHILS % (AUTO) 1.8 % (0.0-8.0); HEMATOCRIT 42.3 % (36-48); LYMPHOCYTES % (AUTO) 9.5 % (21.0-51.0); MEAN CORPUSCULAR HEMOGLOBIN 28.9 pg (27.0-33.0); MEAN CORPUSCULAR HGB CONC 31.2 g/dL (32.0-36.0); MEAN CORPUSCULAR VOLUME 92.8 fL (79-99); MONOCYTES % (AUTO) 4.4 % (3.0-13.0); PLATELET COUNT (AUTO) 308 K/uL (130-400); RED BLOOD CELL COUNT(AUTO) 4.56 MIL/uL (4.00-5.50); RED CELL DISTRIBUTION WIDTH 13.6 % (11.0-15.5); WHITE BLOOD COUNT (AUTO) 6.1 K/uL (4.8-10.8)
[2020-09-24 05:05] LABS: CREATININE 0.7 mg/dL (0.5-1.5); PHOSPHORUS 4.5 mg/dL (2.5-4.9); POTASSIUM 3.7 mmol/L (3.5-5.1)
[2020-09-24] MEDS: INSULIN HUMULIN R 100 UNIT/ML 3ML SQ SCH ×4 (06:36→21:40)
[2020-09-24 08:00] VITALS: BP 134/57
[2020-09-24] MEDS: BENZONATATE 100 MG CAPSULE PO SCH ×3 (08:36→21:00)
[2020-09-24] MEDS: PANTOPRAZOLE 40 MG/VIAL IVP SCH (08:37)
[2020-09-24] MEDS: ENOXAPARIN SODIUM 40 MG/0.4 ML SYRINGE SQ SCH (08:37)
[2020-09-24] MEDS ORDERED: ENOXAPARIN SODIUM 30 MG/0.3 ML SQ SCH (09:00)
[2020-09-24 11:37] VITALS: BP 118/45
[2020-09-24] MEDS: SOLU-MEDROL 40MG VIAL IVP SCH ×2 (11:48→21:24)
[2020-09-24] MEDS: CEFTRIAXONE 2GM VIAL IVP SCH (11:49)
[2020-09-24 16:36] VITALS: BP 134/63
[2020-09-24 19:58] VITALS: BP 139/59
[2020-09-24] MEDS: POLYETHYLENE GLYCOL 3350 17 GM POWD.PACK PO SCH (21:30)
[2020-09-24 23:45] VITALS: BP 147/60
[2020-09-25] MEDS: IPRATROPIUM/ALBUTEROL SULFATE 3 ML SOLUTION IH SCH ×4 (02:11→13:53)
[2020-09-25 03:55] VITALS: BP 135/67
[2020-09-25] MEDS: FUROSEMIDE 20MG VIAL IV SCH ×2 (04:12→10:52)
[2020-09-25 05:06] LABS: HEMATOCRIT 40.7 % (36-48); MEAN CORPUSCULAR HGB CONC 31.4 g/dL (32.0-36.0); MEAN CORPUSCULAR VOLUME 92.3 fL (79-99); RED BLOOD CELL COUNT(AUTO) 4.41 MIL/uL (4.00-5.50); RED CELL DISTRIBUTION WIDTH 13.8 % (11.0-15.5); WHITE BLOOD COUNT (AUTO) 11.3 K/uL (4.8-10.8)
[2020-09-25 05:11] LABS: CREATININE 0.7 mg/dL (0.5-1.5); POTASSIUM 3.5 mmol/L (3.5-5.1)
[2020-09-25] MEDS: INSULIN HUMULIN R 100 UNIT/ML 3ML SQ SCH ×3 (05:54→16:30)
[2020-09-25 08:00] VITALS: BP 124/42
[2020-09-25] MEDS: PANTOPRAZOLE 40 MG/VIAL IVP SCH (09:42)
[2020-09-25] MEDS: BENZONATATE 100 MG CAPSULE PO SCH ×2 (09:42→14:00)
[2020-09-25] MEDS: POLYETHYLENE GLYCOL 3350 17 GM POWD.PACK PO SCH (09:42)
[2020-09-25] MEDS: ENOXAPARIN SODIUM 40 MG/0.4 ML SYRINGE SQ SCH (09:43)
[2020-09-25] MEDS: SOLU-MEDROL 40MG VIAL IVP SCH (10:52)
[2020-09-25 12:00] VITALS: BP 127/61
[2020-09-25] MEDS ORDERED: DOXY100C2 PO (15:22)
[2020-09-25] MEDS ORDERED: PRED20TA3 PO (15:22)
[2020-09-25 16:00] VITALS: BP 103/67
== END 2020-09-25 18:45 | disposition home or self-care (01) ==
LOC: EDH 23:57 → EDHIP 09-23 08:00 → 3CH 09-23 14:17
PROVIDERS: ADMIT Internal Medicine; ATTEND Internal Medicine
DX: J44.1 Chronic obstructive pulmonary disease with (acute) exacerbation (principal); J96.21 Acute and chronic respiratory failure with hypoxia; J18.9 Pneumonia, unspecified organism; K27.9 Peptic ulcer, site unspecified, unspecified as acute or chronic, without hemorrhage or perforation; R64 Cachexia; Z99.81 Dependence on supplemental oxygen; Z91.19 Patient's noncompliance with other medical treatment and regimen; Z90.49 Acquired absence of other specified parts of digestive tract; Z79.82 Long term (current) use of aspirin; Z79.899 Other long term (current) drug therapy
CPT/HCPCS: 36415 ×3; 71045 ×3; 80048 ×2; 80053; 81001; 82948 ×10; 83735; 83880; 84100; 84484; 85025; 85027 ×2; 87635; 87804 ×2; 93005; 94640 ×13; 94664; 96365; 96372 ×3; 96375; 96376 ×3; 99285; C9113 ×3; C9803; G0378 ×54; J0696 ×2; J1650 ×3; J1815 ×3; J1940 ×7; J1956; J2920 ×3; J2930 ×4

== ENCOUNTER → 2021-03-13 | Outpatient (CLI) | payer OTHER ==
[~2021-03-13] MED LIST changes: +DOXY100C5 PO; -LEVO500T2 PO
== END | disposition home or self-care (01) ==
LOC: RAH 09:42
PROVIDERS: ATTEND Internal Medicine Gastroenterology
DX: K21.9 Gastro-esophageal reflux disease without esophagitis (principal); R13.10 Dysphagia, unspecified
CPT/HCPCS: 74240

== ENCOUNTER → 2021-07-30 | Outpatient (CLI) | payer OTHER ==
[~2021-07-30] MED LIST changes: +AMOX1TAB16 PO; -DOXY100C5 PO
== END | disposition home or self-care (01) ==
LOC: SHCH 13:09
PROVIDERS: ATTEND Internal Medicine Cardiovascular Disease
DX: I87.2 Venous insufficiency (chronic) (peripheral) (principal)
CPT/HCPCS: 93970